=== PATIENT | male | born 1955 | race Caucasian/White ===

== ENCOUNTER 2021-08-20 06:38 | Emergency (ER) | payer OTHER, MEDICARE, SELFPAY ==
[2021-08-20 06:51] VITALS: PULSE 129; RESP 24; TEMP 36.6; O2SAT 95; BMI 33.9
--- NOTE | 2021-08-20 06:53 | ECG_ITS ---
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 Measurements Intervals Ledbetter Rate: 129 P: MI: QRS: -25 QRSD: 98 T: 116 QT: 296 QTc: 435 Interpretive Statements ATRIAL FLUTTER/TACHYCARDIA WITH RAPID VENTRICULAR RESPONSE WITH ABERRANT CONDUCTION OR VENTRICULAR PREMATURE COMPLEXES BORDERLINE LEFT AXIS DEVIATION [QRS AXIS < -20] NONSPECIFIC ST & T-WAVE ABNORMALITY No previous ECG available for comparison Electronically Signed On 08-20-2021 19:27:12 CDT by Migel David M.D. [id number]
--- NOTE | 2021-08-20 06:53 | XRR_ITS ---
PROCEDURE INFORMATION: Exam: XR Chest Exam date and time: 08/20/2021 7:32 AM Age: 66 years old Clinical indication: Shortness of breath; Additional info: SOB TECHNIQUE: Imaging protocol: XR of the chest. Views: 1 view. COMPARISON: No relevant prior studies available. FINDINGS: Lungs: Low lung volumes limiting evaluation of lung bases. Diffuse prominent interstitial markings with patchy bibasilar opacities. No dense lobar consolidation. Atelectasis/scarring at the mid lungs bilaterally. Pleural spaces: Small pleural effusions suspected. No visible pneumothorax. Heart/Mediastinum: Cardiac silhouette moderately enlarged. Bones/joints: Unremarkable. XR/XR chest 1V portable [id number] IMPRESSION: Enlarged cardiac silhouette with diffuse interstitial prominence and patchy bibasilar opacities. Findings suggestive of congestive failure, with atypical pneumonia not excluded. Small pleural effusions suspected.
--- NOTE | 2021-08-20 07:01 | ED_ITS ---
HPI - SOB/Dyspnea General: Chief Complaint: Shortness of Breath/Dyspnea Stated Complaint: SOB Time Seen by Provider: 08/20/21 06:40 History of Present Illness: HPI Narrative: 66-year-old male presents with shortness of breath. He reports been going on for least 5 days. That he has had subjective fever. No chest pain. He does feel like his heart is beating fast. He feels like he is having fluid or extended lower belly. He is short of breath with rest or with activity. Patient has no known prior history of shortness of breath. He denies any nausea, vomiting. Patient reports he is taken 2 COVID tests at home and they both been negative. Associated symptoms: Reports fever(s) and palpitations; Deny abdominal pain, chest pain, lightheadedness, nausea or vomiting Review of Systems Const: Reports: fever(s) and malaise ENMT: Denies: throat pain or hoarseness Card: Reports: palpitations; Denies: chest pain or lightheadedness Resp: Reports: dyspnea and non-productive cough; Denies: wheezing, stridor or pain on inspiration GI: Denies: abdominal pain, nausea or vomiting : Denies: flank pain or difficulty urinating Skin/Breast: Denies: rash Neuro: Denies: headache(s) or numbness in extremities Psych: Denies: anxiety Physical Exam Const: COMMON NORMALS: no acute distress and patient oriented x3 HENMT: HEAD & SCALP: normal to inspection MOUTH: moist mucous membranes abnormal Chest: CHEST: No abnormal inspection of the chest and Yes Symmetrical chest wall rise Resp: EFFORT & INSPECTION: Yes able to speak in complete sentences, No respiratory distress and No stridor AUSCULTATION: no wheezes and diminished lung sounds (mild ) Cardio: COMMON NORMALS: Peripheral pulses 2+ throughout RATE: tachycardic PERIPHERAL PULSES: Peripheral pulses 2+ throughout GI: COMMON NORMALS: Soft to palpation and non-tender AUSCULTATION: Yes normoactive bowel sounds PALPATION: Yes Soft to palpation and No Tenderness to palpation present (GI) Extremity: COMMON NORMALS: normal to inspection, full ROM and capillary refill normal Neuro: COMMON NORMALS: patient oriented x3, moves all extremities and no focal motor deficits Psych: COMMON NORMALS: mental status grossly normal, Normal thought process present and cooperative THOUGHT PROCESS: Normal thought process present Skin: COMMON NORMALS: no rashes or lesions noted GENERAL SKIN EXAM: no rashes or lesions noted Course Vital Signs: Vital signs: Vital Signs Temperature 97.8 F 08/20/21 06:51 Pulse Rate 127 H 08/20/21 10:19 Respiratory Rate 22 H 08/20/21 10:19 Blood Pressure 157/109 08/20/21 10:19 Pulse Oximetry 98 08/20/21 10:19 MDM - SOB/Dyspnea Medical Decision Making Patient with CT that shows bilateral pleural effusions associate with likely congestive heart failure. He also has some obstruction of the lateral segment o f the right middle lobe. Likely mucous plugging however potential lesion. Patient has a elevated troponin of 88. He does have a slight white count. There is no PE noted. I discussed with patient that we would like to admit him due to the elevated troponin, his heart rate is consistent sinus tach at a rate of 127-128. At this time patient is declining admission. I discussed with him that he is at increased risk for and injury which he voices understanding. Discussed with biofuels plant construction worker on-call. We will start him on metoprolol 25 twice daily, place a Holter monitor. Have him start aspirin daily. Start him on Lasix 20 mg twice daily. I will also start him on an antibiotic with mucous plugging. Recommend he start Mucinex and spirometer which he states his family has at home. Patient was recommended follow-up with cardiology and his primary care provider next week. Lab Data : 08/20/21 07:00 08/20/21 07:00 Labs/Radiology: Radiology Impressions Chest X-Ray 08/20/21 06:53 IMPRESSION: Enlarged cardiac silhouette with diffuse interstitial prominence and patchy bibasilar opacities. Findings suggestive of congestive failure, with atypical pneumonia not excluded. Small pleural effusions suspected. Chest CTA 08/20/21 08:04 IMPRESSION: 1. No evidence of pulmonary embolism to the segmental level. There is incomplete filling of the peripheral arterial branches at the posterior lung bases favored to be at least in part artifactual although subsegmental emboli are not excluded. There is no evidence of increased right heart pressure. 2. Moderate right and small left layering pleural effusions with associated atelectasis. 3. Obstruction of the bronchus of the lateral segment of the right middle lobe, with complete collapse of the lateral segment. This may be related to inflammation/mucous plugging although endobronchial lesion is not excluded. Consider further evaluation with bronchoscopy, versus follow-up CT to ensure resolution after treatment. 4. Nonspecific bilateral hilar and mediastinal adenopathy which may be reactive. Laboratory Results WBC 12.2 10^3/uL (4.0-10.0) H 08/20/21 07:00 RBC 4.58 10^6/uL (4.1-5.3) 08/20/21 07:00 Hgb 15.1 g/dL (11.7-16.6) 08/20/21 07:00 Hct 44.5 % (42.0-52.0) 08/20/21 07:00 MCV 97.2 fl (80-94) H 08/20/21 07:00 MCH 33.0 pg (28.0-34.0) 08/20/21 07:00 MCHC 33.9 g/dL (30.0-36.0) 08/20/21 07:00 RDW 14.5 % (12.1-15.1) 08/20/21 07:00 Plt Count 293 10^3/cmm (130-400) 08/20/21 07:00 MPV 11.3 fL (7.4-10.4) H 08/20/21 07:00 Neut % (Auto) 78.4 % 08/20/21 07:00 Lymph % (Auto) 12.7 % 08/20/21 07:00 [place] % (Auto) 7.1 % 08/20/21 07:00 Eos % (Auto) 0.8 % 08/20/21 07:00 Baso % (Auto) 0.7 % 08/20/21 07:00 Neut # (Auto) 9.58 10^3/uL (1.8-7.7) H 08/20/21 07:00 Lymph # (Auto) 1.6 10^3/uL (0.8-4.8) 08/20/21 07:00 [place] # (Auto) 0.9 10^3/uL (0.2-0.9) 08/20/21 07:00 Eos # (Auto) 0.1 10^3/uL (0.0-0.8) 08/20/21 07:00 Baso # (Auto) 0.1 10^3/uL (0.0-0.1) 08/20/21 07:00 Nucleated RBC % (auto) 0 % 08/20/21 07:00 Nucleated RBCs # 0.0 /100WBC 08/20/21 07:00 D-Dimer 2.76 ug/mIFEU (0-0.59) H 08/20/21 07:00 Sodium 141 mmol/L (136-145) 08/20/21 07:00 Potassium 4.2 mmol/L (3.5-5.1) 08/20/21 07:00 Chloride 105 mmol/L (98-107) 08/20/21 07:00 Carbon Dioxide 22 mmol/L (22-29) 08/20/21 07:00 Anion Gap 18.2 (5-19) 08/20/21 07:00 BUN 30 mg/dL (8-23) H 08/20/21 07:00 Creatinine 1.1 mg/dL (0.7-1.2) 08/20/21 07:00 GFR Calculation 67.2 mL/min (90-130) L 08/20/21 07:00 Glucose 127 mg/dL (65-115) H 08/20/21 07:00 Calculated Osmolality 300 mOsm/kg (285-295) H 08/20/21 07:00 Lactic Acid 1.3 mmol/L (0.5-2.2) 08/20/21 07:00 Calcium 9.0 mg/dL (8.5-10.5) 08/20/21 07:00 Magnesium 1.5 mg/dL (1.7-2.3) L 08/20/21 07:00 Total Bilirubin 0.9 mg/dL (0.15-1.2) 08/20/21 07:00 AST 72 U/L (0-40) H 08/20/21 07:00 ALT 123 U/L (0-41) H 08/20/21 07:00 Alkaline Phosphatase 161 IU/L (40-130) H 08/20/21 07:00 Troponin T Baseline 88 ng/L (0-15) H 08/20/21 07:00 Troponin T 120 Minute 77.96 ng/L (0-15) H 08/20/21 09:38 Delta Troponin T -10.04 ABS# (0-10) L 08/20/21 09:38 NT-Pro-B Natriuret Pep 5376 pg/mL (0-125) H 08/20/21 07:00 Total Protein 6.6 g/dL (6.6-8.7) 08/20/21 07:00 Albumin 4.3 g/dL (3.5-5.2) 08/20/21 07:00 Globulin 2.3 g/dL (1.3-4.6) 08/20/21 07:00 Influenza Type A Ag Negative (Negative) 08/20/21 07:24 Influenza Type B Ag Negative (Negative) 08/20/21 07:24 Discharge Plan Discharge Patient Disposition: Home Clinical Impression: Congestive heart failure, Tachycardia, Abnormal findings on diagnostic imaging of lung Condition: Stable Prescriptions: New doxycycline hyclate 100 mg tablet 100 mg PO BID 10 Days Qty: 20 0RF metoprolol tartrate 25 mg tablet 25 mg PO BID Qty: 30 0RF furosemide 20 mg tablet 20 mg PO BID Qty: 10 0RF Discharge Orders: Discharge ED (Routine); Ordered 08/20/21 Ordered By: Sam Sierra Other Ambulatory Orders: ECG holter monitor 3 Days (Routine) Timeframe: 3 Days Facility: [facility] - Location: Radiology Ordered By: Sam Sierra Referrals: Migel David M.D [Physician] - 4-7 days Ministerio Medellin [Primary Care Provider] - Discharge Diet: Usual diet Discharge Activity: Resume usual activity Patient Instructions: Heart Failure (DC), Tachycardia (ED), Opioid Safety Activity Restrictions/Additional Instructions: Please start aspirin 81 mg daily, please follow-up with your primary care provider next week to reevaluate your CT and arrange for outpatient follow-up with finishing powder press operator for repeat CT Please call cardiology office to arrange for an outpatient follow-up. Return to the ER as needed Coding Level of Care Code ED Acute Care Occupational Therapist for Jojo Fwfani Exam Comprehensive
[2021-08-20 07:18] LABS: Basophils # 0.1 10^3/uL (0.0-0.1); Basophils % 0.7 %; Eosinophils # 0.1 10^3/uL (0.0-0.8); Eosinophils % 0.8 %; Hematocrit 44.5 % (42.0-52.0); Hemoglobin 15.1 g/dL (11.7-16.6); Lymphocytes # 1.6 10^3/uL (0.8-4.8); Lymphocytes % 12.7 %; Mean Corpuscular HGB Conc 33.9 g/dL (30.0-36.0); Mean Corpuscular Volume 97.2 fl (80-94); Mean Platelet Volume 11.3 fL (7.4-10.4); Monocytes # 0.9 10^3/uL (0.2-0.9); Monocytes % 7.1 %; Neutrophils # 9.58 10^3/uL (1.8-7.7); Neutrophils % 78.4 %; Nucleated Red Blood Cells % 0 %; Platelet Count 293 10^3/cmm (130-400); Red Blood Count 4.58 10^6/uL (4.1-5.3); Red Cell Distribution Width 14.5 % (12.1-15.1); White Blood Count 12.2 10^3/uL (4.0-10.0)
[2021-08-20] MEDS: sodium chloride 0.9% 1,000 ML 999 ML IV (07:38)
[2021-08-20 07:46] VITALS: BP 151/89; PULSE 128; RESP 20; O2SAT 96
[2021-08-20 07:47] LABS: Troponin(5th) Baseline 88 ng/L (0-15)
[2021-08-20 07:57] LABS: Alanine Aminotransferase 123 U/L (0-41); Albumin Level 4.3 g/dL (3.5-5.2); Alkaline Phosphatase 161 IU/L (40-130); Anion Gap 18.2 (5-19); Aspartate Amino Transferase 72 U/L (0-40); Blood Urea Nitrogen 30 mg/dL (8-23); Carbon Dioxide 22 mmol/L (22-29); Chloride 105 mmol/L (98-107); Globulin 2.3 g/dL (1.3-4.6); Glomerular Filtration Rate 67.2 mL/min (90-130); Glucose 127 mg/dL (65-115); Magnesium 1.5 mg/dL (1.7-2.3); NT Pro B Type Natriuretic Pept 5376 pg/mL (0-125); Osmolality Calculated 300 mOsm/kg (285-295); Potassium 4.2 mmol/L (3.5-5.1); Sodium 141 mmol/L (136-145); Total Bilirubin 0.9 mg/dL (0.15-1.2); Total Protein 6.6 g/dL (6.6-8.7)
[2021-08-20 08:02] LABS: D Dimer 2.76 ug/mIFEU (0-0.59)
--- NOTE | 2021-08-20 08:04 | CTR_ITS ---
PROCEDURE INFORMATION: Exam: CTA Chest With Contrast Exam date and time: 08/20/2021 9:05 AM Age: 66 years old Clinical indication: Shortness of breath; Additional info: SOB, elevated d dimer, tachy TECHNIQUE: Imaging protocol: Computed tomographic angiography of the chest with contrast. 3D rendering (Not supervised by radiologist): MIP and/or 3D reconstructed images were created by the technologist. Radiation optimization: All CT scans at this facility use at least one of these dose optimization techniques: automated exposure control; mA and/or kV adjustment per patient size (includes targeted exams where dose is matched to clinical indication); or iterative reconstruction. Contrast material: OMNI 350; Contrast volume: 95 ml; Contrast route: INTRAVENOUS (IV); COMPARISON: CR (CHEST, ) 08/20/2021 7:32 AM RADIATION DOSE METRICS: Total DLP (mGy-cm): 613.91 FINDINGS: Pulmonary arteries: Main pulmonary artery normal in caliber. No filling defects within the pulmonary arterial branches to the segmental level. There is symmetrical incomplete opacification of the subsegmental branches within the posterior basilar segments bilaterally as well as the medial basilar segment of the right lower lobe, with a somewhat graded appearance suggesting this may be in part artifactual, although subsegmental emboli not excluded. Aorta: Unremarkable. No aortic aneurysm. No aortic dissection. Lungs: See Pleural spaces finding. Pleural spaces: Moderate right and small left layering pleural effusions with associated lower lobe atelectasis. There is complete collapse of the lateral segment of the right middle lobe, with apparent obstruction of the airway. No pneumothorax. Heart: Mild cardiomegaly. Mild coronary artery calcifications. No pericardial effusion. Normal RV/LV ratio. Lymph nodes: Bilateral mediastinal and hilar adenopathy, largest nodes including 19 mm short axis right hilar node, 19 mm left hilar node, 18 mm subcarinal node, 15 mm AP window node, and 17 mm precarinal node. Diaphragm: Small sliding hiatal hernia. Bones/joints: No acute or aggressive osseous lesion. Soft tissues: Unremarkable. CT/CT angio chest PE protcl [id number] IMPRESSION: 1. No evidence of pulmonary embolism to the segmental level. There is incomplete filling of the peripheral arterial branches at the posterior lung bases favored to be at least in part artifactual although subsegmental emboli are not excluded. There is no evidence of increased right heart pressure. 2. Moderate right and small left layering pleural effusions with associated atelectasis. 3. Obstruction of the bronchus of the lateral segment of the right middle lobe, with complete collapse of the lateral segment. This may be related to inflammation/mucous plugging although endobronchial lesion is not excluded. Consider further evaluation with bronchoscopy, versus follow-up CT to ensure resolution after treatment. 4. Nonspecific bilateral hilar and mediastinal adenopathy which may be reactive.
[2021-08-20 08:25] LABS: Lactic Sepsis W/Reflex 1.3 mmol/L (0.5-2.2)
[2021-08-20 08:50] LABS: Influenza A by IFA Negative (Negative); Influenza B by IFA Negative (Negative)
[2021-08-20] MEDS: iohexol 350 mg/mL 100 mL Btl IV (09:09)
[2021-08-20 10:11] LABS: Troponin 5 2HR 77.96 ng/L (0-15)
[2021-08-20 10:13] LABS: Troponin 5 2HR Delta -10.04 ABS# (0-10)
[2021-08-20 10:19] VITALS: BP 157/109; PULSE 127; RESP 22; O2SAT 98
== END 2021-08-20 10:41 | disposition home or self-care (01) ==
PROVIDERS: Emergency Provider Student in an Organized Health Care Education/Training Program; PCP Family Medicine
DX: I50.9 Heart failure, unspecified (principal); R00.0 Tachycardia, unspecified; R91.8 Other nonspecific abnormal finding of lung field; R77.8 Other specified abnormalities of plasma proteins
CPT/HCPCS: 71045; 71275; 80053; 83605; 83735; 83880; 84484; 85025; 85378; 87804; 93005; 96360; 99284; J7030; Q9967

== ENCOUNTER 2021-08-21 17:05 | Emergency (ER) | payer OTHER, MEDICARE, SELFPAY ==
[2021-08-21] VITALS (7 sets, daily range): BP systolic 120–148; BP diastolic 67–87; PULSE 88–121; RESP 18–24; TEMP 35.9; O2SAT 93–98; BMI 33.9
--- NOTE | 2021-08-21 18:45 | XRR_ITS ---
PROCEDURE INFORMATION: Exam: XR Chest Exam date and time: 08/21/2021 7:05 PM Age: 66 years old Clinical indication: Dyspnea; Additional info: SOB TECHNIQUE: Imaging protocol: XR of the chest. Views: 1 view. COMPARISON: CR (CHEST, ) 08/20/2021 7:32 AM FINDINGS: Lungs: Bibasilar atelectasis versus infiltrate. Pleural spaces: Unremarkable. No pleural effusion. No pneumothorax. Heart/Mediastinum: Cardiomegaly and pulmonary vascular congestion. Bones/joints: Unremarkable. XR/XR chest 1V portable [id number] IMPRESSION: 1. Cardiomegaly and pulmonary vascular congestion. 2. Bibasilar atelectasis versus infiltrate.
--- NOTE | 2021-08-21 18:46 | ECG_ITS ---
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 Measurements Intervals Cisco Rate: 116 P: ME: QRS: -3 QRSD: 98 T: 120 QT: 361 QTc: 503 Interpretive Statements ATRIAL FLUTTER/TACHYCARDIA WITH RAPID VENTRICULAR RESPONSE Compared to ECG 08/20/2021 07:01:13 ST (T wave) deviation now present Ventricular premature complex(es) no longer present T-wave abnormality no longer present Electronically Signed On 08-21-2021 21:55:45 CDT by Migel David M.D. [id number]
[2021-08-21 19:02] LABS: Basophils % 0.2 %; Hematocrit 47.5 % (42.0-52.0); Hemoglobin 14.9 g/dL (11.7-16.6); Lymphocytes # 0.7 10^3/uL (0.8-4.8); Mean Corpuscular HGB Conc 31.4 g/dL (30.0-36.0); Mean Corpuscular Hemoglobin 32.1 pg (28.0-34.0); Mean Corpuscular Volume 102.4 fl (80-94); Mean Platelet Volume 11.9 fL (7.4-10.4); Monocytes # 1.7 10^3/uL (0.2-0.9); Monocytes % 7.4 %; Neutrophils # 20.59 10^3/uL (1.8-7.7); Neutrophils % 88.4 %; Nucleated Red Blood Cells # 0.1 /100WBC; Nucleated Red Blood Cells % 0.3 %; Platelet Count 250 10^3/cmm (130-400); Red Blood Count 4.64 10^6/uL (4.1-5.3); Red Cell Distribution Width 14.6 % (12.1-15.1); White Blood Count 23.3 10^3/uL (4.0-10.0)
--- NOTE | 2021-08-21 19:19 | ED_ITS ---
HPI - SOB/Dyspnea General: Chief Complaint: Shortness of Breath/Dyspnea Stated Complaint: pt has heart failure needs checked Time Seen by Provider: 08/21/21 18:44 Source: patient Mode of arrival: ambulatory Limitations: no limitations History of Present Illness: HPI Narrative: 66-year-old male who states he was seen here yesterday had likely congestive heart failure with pleural effusions he states that he did not want to stay yesterday and he decided to leave he states that overnight he has been feeling worse has been having increasing shortness of breath he does have some distress here able speak in roughly 3-5 words. He states that he gets extremely dyspnea with any exertion or laying flat denies any vomiting or diarrhea. Physical Exam Const: COMMON NORMALS: patient oriented x3 GENERAL APPEARANCE: ill appearing HENMT: COMMON NORMALS: normocephalic and atraumatic HEAD & SCALP: normocephalic and atraumatic Eye: COMMON NORMALS: Equal, round and reactive pupils present and EOMs intact bilaterally PUPIL: Yes Equal, round and reactive pupils present Neck/C-Spine: COMMON NORMALS: full ROM and supple Chest: COMMONS NORMALS: normal inspection of the chest and normal palpation of entire chest wall Resp: COMMON NORMALS: No retractions and No use of accessory muscles OTHER: Bilateral rales he does have tachypnea as well Cardio: COMMON NORMALS: regular rhythm and No murmurs present (Cardio) RATE: tachycardic RHYTHM: regular rhythm GI: COMMON NORMALS: Normal to inspection, nondistended, normoactive bowel sounds present, Soft to palpation, non-tender and no masses PALPATION: Yes Soft to palpation Extremity: COMMON NORMALS: full ROM OTHER: 2+ edema Neuro: COMMON NORMALS: patient oriented x3, moves all extremities and no focal motor deficits Psych: COMMON NORMALS: mental status grossly normal, Normal thought process present and cooperative THOUGHT PROCESS: Normal thought process present Skin: COMMON NORMALS: no rashes or lesions noted and no wounds GENERAL SKIN EXAM: no rashes or lesions noted Course Vital Signs: Vital signs: Vital Signs Temperature 96.7 F L 08/21/21 17:29 Pulse Rate 120 H 08/21/21 21:00 Respiratory Rate 22 H 08/21/21 21:00 Blood Pressure 148/87 08/21/21 21:00 Pulse Oximetry 95 08/21/21 21:00 MDM - SOB/Dyspnea Medical Decision Making Patient presents here with fulminant liver failure along with congestive heart failure and pneumonia he has an elevated lactate is vital signs here normal patient started on IV antibiotics I spoke to physician at [facility] will transfer there for higher level of care with GI capability. Lab Data : 08/21/21 18:51 08/21/21 18:51 Labs/Radiology: Laboratory Results WBC 23.3 10^3/uL (4.0-10.0) H 08/21/21 18:51 RBC 4.64 10^6/uL (4.1-5.3) 08/21/21 18:51 Hgb 14.9 g/dL (11.7-16.6) 08/21/21 18:51 Hct 47.5 % (42.0-52.0) 08/21/21 18:51 MCV 102.4 fl (80-94) H 08/21/21 18:51 MCH 32.1 pg (28.0-34.0) 08/21/21 18:51 MCHC 31.4 g/dL (30.0-36.0) 08/21/21 18:51 RDW 14.6 % (12.1-15.1) 08/21/21 18:51 Plt Count 250 10^3/cmm (130-400) 08/21/21 18:51 MPV 11.9 fL (7.4-10.4) H 08/21/21 18:51 Neut % (Auto) 88.4 % 08/21/21 18:51 Lymph % (Auto) 3.0 % 08/21/21 18:51 [place] % (Auto) 7.4 % 08/21/21 18:51 Eos % (Auto) 0.0 % 08/21/21 18:51 Baso % (Auto) 0.2 % 08/21/21 18:51 Neut # (Auto) 20.59 10^3/uL (1.8-7.7) H 08/21/21 18:51 Lymph # (Auto) 0.7 10^3/uL (0.8-4.8) L 08/21/21 18:51 [place] # (Auto) 1.7 10^3/uL (0.2-0.9) H 08/21/21 18:51 Eos # (Auto) 0.0 10^3/uL (0.0-0.8) 08/21/21 18:51 Baso # (Auto) 0.0 10^3/uL (0.0-0.1) 08/21/21 18:51 Nucleated RBC % (auto) 0.3 % 08/21/21 18:51 Nucleated RBCs # 0.1 /100WBC 08/21/21 18:51 PT 30.90 SECONDS (12.1-14.9) H 08/21/21 18:51 INR 2.91 (0.8-1.2) H 08/21/21 18:51 Specimen Type Arterial 08/21/21 19:54 Sample Site Radial, left 08/21/21 19:54 ABG pH 7.35 (7.35-7.45) 08/21/21 19:54 ABG pCO2 27.0 mmHg (35-45) L 08/21/21 19:54 ABG pO2 74.2 mmHg (80.0-100.0) L 08/21/21 19:54 ABG HCO3 14.7 mmol/L (22-26) L 08/21/21 19:54 ABG Base Excess -9.3 mmol/L (-2.0-2.0) L 08/21/21 19:54 Raymond Test Pos 08/21/21 19:54 Hematocrit 44.4 % (42-52) 08/21/21 19:54 O2 Delivery Device Room air 08/21/21 19:54 FiO2 21.0 % 08/21/21 19:54 Nuclear Plant Equipment Operator ID Ed 08/21/21 19:54 Sodium 136 mmol/L (136-145) 08/21/21 18:51 Potassium 5.2 mmol/L (3.5-5.1) H 08/21/21 18:51 Chloride 98 mmol/L (98-107) 08/21/21 18:51 Carbon Dioxide 17 mmol/L (22-29) L 08/21/21 18:51 Anion Gap 26.2 (5-19) H 08/21/21 18:51 BUN 37 mg/dL (8-23) H 08/21/21 18:51 Creatinine 1.6 mg/dL (0.7-1.2) H 08/21/21 18:51 GFR Calculation 43.6 mL/min (90-130) L 08/21/21 18:51 Glucose 189 mg/dL (65-115) H 08/21/21 18:51 Calculated Osmolality 296 mOsm/kg (285-295) H 08/21/21 18:51 Lactic Acid 6.8 mmol/L (0.5-2.2) H* 08/21/21 20:15 Calcium 8.0 mg/dL (8.5-10.5) L 08/21/21 18:51 Total Bilirubin 2.5 mg/dL (0.15-1.2) H 08/21/21 18:51 AST 3098 U/L (0-40) H 08/21/21 18:51 ALT 2505 U/L (0-41) H 08/21/21 18:51 Alkaline Phosphatase 209 IU/L (40-130) H 08/21/21 18:51 Troponin T Baseline 91 ng/L (0-15) H 08/21/21 18:51 Troponin T 120 Minute 83.92 ng/L (0-15) H 08/21/21 20:24 Delta Troponin T -7.08 ABS# (0-10) L 08/21/21 20:24 NT-Pro-B Natriuret Pep 8572 pg/mL (0-125) H 08/21/21 18:51 Total Protein 5.9 g/dL (6.6-8.7) L 08/21/21 18:51 Albumin 4.1 g/dL (3.5-5.2) 08/21/21 18:51 Globulin 1.8 g/dL (1.3-4.6) 08/21/21 18:51 Lipase 56 U/L (13-60) 08/21/21 18:51 EKG Data EKG 1: I personally reviewed and interpreted this EKG as follows: EKG Interpretation Date: 08/21/21 EKG interpretation time: : Interpretation: atrial flutter hr [address] or t wave abnormalities qrs 99 qtc 362 Critical Care Time Critical Care Time: Critical Care Time: Yes Total Critical Care Time: 45 Attestation: The high probability of a clinically significant, sudden or life threatening deterioration of the patient's liver/pulm system(s) required my full and direct attention, intervention and personal management. The critical care time is as shown. This time is in addition to time spent performing any reported procedures but includes the following: [x] Data and vital sign review and interpretation [x] Patient assessment, examination and intervention [x] Documentation [x] Medication orders and management Discharge Plan Discharge Patient Disposition: Xfer Short-Term Hosp Clinical Impression: Congestive heart failure, Elevated lactic acid level, Acute liver failure, Community acquired pneumonia Condition: Stable Referrals: Ministerio Medellin [Primary Care Provider] - Coding Level of Care Code ED Immigration Paralegal for Chg Fwd Exam Comprehensive
[2021-08-21 19:33] LABS: Troponin(5th) Baseline 91 ng/L (0-15)
[2021-08-21 19:40] LABS: Albumin Level 4.1 g/dL (3.5-5.2); Alkaline Phosphatase 209 IU/L (40-130); Anion Gap 26.2 (5-19); Blood Urea Nitrogen 37 mg/dL (8-23); Carbon Dioxide 17 mmol/L (22-29); Chloride 98 mmol/L (98-107); Globulin 1.8 g/dL (1.3-4.6); Glomerular Filtration Rate 43.6 mL/min (90-130); Glucose 189 mg/dL (65-115); NT Pro B Type Natriuretic Pept 8572 pg/mL (0-125); Osmolality Calculated 296 mOsm/kg (285-295); Potassium 5.2 mmol/L (3.5-5.1); Sodium 136 mmol/L (136-145); Total Bilirubin 2.5 mg/dL (0.15-1.2); Total Protein 5.9 g/dL (6.6-8.7)
[2021-08-21 19:52] LABS: Alanine Aminotransferase 2505 U/L (0-41)
[2021-08-21 19:53] LABS: Aspartate Amino Transferase 3098 U/L (0-40)
--- NOTE | 2021-08-21 19:59 | CTR_ITS ---
PROCEDURE INFORMATION: Exam: CT Abdomen And Pelvis With Contrast Exam date and time: 08/21/2021 8:32 PM Age: 66 years old Clinical indication: Patient HX: PT denies abdominal pain. Chest pain and increasing dyspnea, SOB; Additional info: Abd pain TECHNIQUE: Imaging protocol: Computed tomography of the abdomen and pelvis with contrast. Radiation optimization: All CT scans at this facility use at least one of these dose optimization techniques: automated exposure control; mA and/or kV adjustment per patient size (includes targeted exams where dose is matched to clinical indication); or iterative reconstruction. Contrast material: VISI; Contrast volume: 95 ml; Contrast route: INTRAVENOUS (IV); COMPARISON: CT angio chest PE protcl [id number] 08/20/2021 9:05 AM RADIATION DOSE METRICS: Total DLP (mGy-cm): 1982.1 FINDINGS: Lungs: Bilateral dependent atelectasis versus infiltrate. Pleural spaces: Moderate to large right and moderate left pleural effusion. Heart: Cardiomegaly. Liver: Hepatic steatosis. Gallbladder and bile ducts: Normal. No calcified stones. No ductal dilation. Pancreas: Normal. No ductal dilation. Spleen: Normal. No splenomegaly. Adrenal glands: Normal. No mass. Kidneys and ureters: Right kidney cyst, negative for follow-up advised. Stomach and bowel: Diverticulosis without diverticulitis. Appendix: No evidence of appendicitis. Intraperitoneal space: Small amount of ascites in the abdomen, nonspecific. Arteries: Unremarkable. No abdominal aortic aneurysm. Lymph nodes: Unremarkable. No enlarged lymph nodes. Urinary bladder: Hyperdense material seen in the urinary bladder may reflect excretion of contrast from a prior CT scan, please correlate for possible hematuria. Reproductive: Unremarkable as visualized. Bones/joints: Unremarkable. No acute fracture. Soft tissues: Unremarkable. CT/CT abdomen pelvis w con* [id number] IMPRESSION: 1. Negative for focal acute inflammatory process in the abdomen or pelvis. 2. Moderate to large right and moderate left pleural effusion. 3. Bilateral dependent atelectasis versus infiltrate. 4. Cardiomegaly. 5. Hepatic steatosis. 6. Small amount of ascites in the abdomen, nonspecific. 7. Diverticulosis without diverticulitis. 8. Right kidney cyst, negative for follow-up advised. 9. Hyperdense material seen in the urinary bladder may reflect excretion of contrast from a prior CT scan, please correlate for possible hematuria.
[2021-08-21] MEDS: cefTRIAXone 1,000 MG in sodium chloride 0.9% (plus) 50 ML 100 MG IV (20:00)
[2021-08-21] MEDS: azithromycin 500 MG in sodium chloride 0.9% 250 ML 250 MG IV (20:01)
[2021-08-21 20:03] LABS: ABG PH Result 7.35 (7.35-7.45); Arterial Blood Gas Hematocrit 44.4 % (42-52); Base Excess ABG -9.3 mmol/L (-2.0-2.0); Blood Gas Allen Test Pos; Blood Gas Sample Type Arterial; HCO3 ABG 14.7 mmol/L (22-26); PO2 ABG 74.2 mmHg (80.0-100.0)
[2021-08-21] MEDS: FUROsemide 10 mg/mL SDV 10mL 60 MG IVP (20:05)
[2021-08-21 20:06] LABS: Blood Gas Operator Identificat ED; Blood Gas Sample Site Radial, left; Oxygen Device ROOM AIR
--- NOTE | 2021-08-21 20:46 | ECG_ITS ---
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 Measurements Intervals [address] [address] [place] Rate: 118 P: ME: QRS: -10 QRSD: 102 T: 97 QT: 359 QTc: 505 Interpretive Statements ATRIAL FLUTTER/TACHYCARDIA WITH RAPID VENTRICULAR RESPONSE NONSPECIFIC ST & T-WAVE ABNORMALITY Compared to ECG 08/21/2021 19:11:11 T-wave abnormality now present ST (T wave) deviation no longer present Myocardial infarct finding no longer present Electronically Signed On 08-21-2021 22:11:30 CDT by Migel David M.D. [id number]
[2021-08-21 20:54] LABS: Lactic Sepsis W/Reflex 6.8 mmol/L (0.5-2.2)
--- NOTE | 2021-08-21 20:56 | PC.NURSE ---
Critical Lactic 6.[address] Mosqueda.
[2021-08-21 21:09] LABS: Troponin 5 2HR 83.92 ng/L (0-15)
[2021-08-21 21:11] LABS: INR 2.91 (0.8-1.2)
[2021-08-21 21:16] LABS: Troponin 5 2HR Delta -7.08 ABS# (0-10)
[2021-08-21 21:17] LABS: Lipase 56 U/L (13-60)
--- NOTE | 2021-08-21 21:58 | PC.NURSE ---
ER to ER transfer report @[id number] called report to [facility] ER for transfer. Spoke with Peggy Carlson RN report given and all questions answered.
[2021-08-21 22:08] LABS: Hepatitis B Core AB, Total Non-Reactive (Nonreactive); Hepatitis B Surface AB 3.5 (11.5-1000); Hepatitis B Surface Antigen Non-Reactive (Nonreactive); Hepatitis C Virus Antibody Non-Reactive (Nonreactive)
[2021-08-21 22:10] LABS: Reflex Lactate Order REFLEX LACTIC ORDERD
== END 2021-08-21 22:31 | disposition short-term general hospital (02) ==
PROVIDERS: Emergency Provider Emergency Medicine; PCP Family Medicine
DX: K72.00 Acute and subacute hepatic failure without coma (principal); I50.9 Heart failure, unspecified; J18.9 Pneumonia, unspecified organism
CPT/HCPCS: 36600; 71045; 74177; 80053; 82803; 83605; 83690; 83880; 84484; 85025; 85610; 86705; 86706; 86709; 86803; 87040; 87340; 93005; 96365; 96367; 99285; J0456; J0696; J1940; J7050; Q9967